=== PATIENT | female | born 1955 | race African-American/Black ===

== ENCOUNTER 2016-06-27 09:07 | Emergency (ER) | payer MEDICAID ==
[~2016-06-27] VITALS: Ht 160 cm; Wt 99.8 kg
[2016-06-27 09:18] VITALS: BP 146/83
[2016-06-27 09:44] LABS: APPEARANCE,URINE SLIGHTLY CLOUDY; KETONES,URINE NEGATIVE (NEGATIVE); LEUKOCYTE ESTERASE ,URINE 1+ (NEGATIVE); NITRITE,URINE NEGATIVE (NEGATIVE); PH,URINE 5 (4.5-8.0); PROTEIN,URINE NEGATIVE (NEGATIVE); UROBILINOGEN,URINE NORMAL MG/DL (0.0-1.0)
[2016-06-27 09:51] LABS: BACTERIA,URINE FEW /HPF; SQUAMOUS EPITHELIAL CELL,UR MODERATE /LPF (NONE/OCC)
[2016-06-27] MEDS ORDERED: ALBUTEROL SULF8.5 GM INH (10:05)
[2016-06-27] MEDS ORDERED: LEVAQUIN500 MG ORAL (10:05)
[2016-06-27 10:20] VITALS: BP 116/79
--- NOTE | 2016-06-27 10:23 | Emergency Room Report ---
History of Present Illness General Chief Complaint: Flu Like Symptoms Source: Patient Present Illness HPI Patient presents with 2 different complaints Mainly complaining of sore throat pain with swallowing patient has also had a mild cough and congestion She had taken some Mucinex for the congestion And feels that that might have caused some mild dehydration and now feeling bilateral lower flank discomfort and concern about a possible UTI Denies any abdominal pain she has had some increased frequency Denies any neck pain or photophobia she does however feel that both of her eyes are mildly itchy And mainly the right eye appears to be mildly red Denies any vomiting or diarrhea Allergies: Coded Allergies: IODINE (Verified Allergy, Unknown, 06/27/16) Uncoded Allergies: IV CONTRAST (Allergy, Unknown, 06/27/16) Patient History Past Medical History: see triage record Pertinent Family History: none Reviewed Nursing Documentation: PMH: Agreed, PSxH: Agreed Nursing Documentation-PMH Past Medical History: No History, Except For Hx Hypertension: Yes Review of Systems All Other Systems: negative except mentioned in HPI Physical Exam Vital Signs Date Time Temp Pulse Resp B/P Pulse Ox O2 Delivery O2 Flow Rate FiO2 06/27/16 09:18 98.2 60 14 146/83 98 Room Air Sp02 EP Interpretation: reviewed, normal General Appearance: well appearing, no apparent distress Head: normocephalic, atraumatic Eyes: bilateral eye EOMI, bilateral eye PERRL, bilateral eye other - Patient has a very fine mild erythematous hue to both eyes appears to be viral in nature , ENT: hearing grossly normal, TMs + canals normal, uvula midline, pharyngeal erythema - But no obvious pustules Neck: full range of motion, supple, no meningismus, no bony tend Respiratory: lungs clear, normal breath sounds, no rhonchi, no respiratory distress, no retraction, no accessory muscle use Cardiovascular #1: normal peripheral pulses, regular rate, rhythm, no edema, no gallop, no JVD, no murmur Gastrointestinal: normal bowel sounds, non tender, soft, no mass, no organomegaly, non-distended, no guarding, no hernia, no pulsatile mass, no rebound Musculoskeletal: normal inspection Neurologic: oriented x3, responsive, 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, motor strength/ tone normal, sensory intact Psychiatric: mood/affect normal Skin: normal color, no rash, warm/dry, palpation normal Lymphatic: normal inspection, no adenopathy Medical Decision Making Diagnostic Impression: Primary Impression: pharyngitis Additional Impression: flu like symptoms ER Course Patient has multiple differentials considered Urine sample does not show any obvious infectious pathology there were a few bacteria Patient's symptoms appear to have a component of viral syndrome However she does also have a finding of pharyngitis which is very erythematous and possibly bacterial patient was placed on oral antibiotics for that And requires close outpatient followup Labs Test 06/27/16 09:35 Urine Color Yellow Urine Appearance Slightly cloudy Urine pH 5 (4.5-8.0) Urine Specific [place] 1.025 (1.005-1.035) Urine Protein Negative (NEGATIVE) Urine Glucose (UA) Negative (NEGATIVE) Urine Ketones Negative (NEGATIVE) Urine Occult Blood 3+ (NEGATIVE) Urine Nitrite Negative (NEGATIVE) Urine Bilirubin Negative (NEGATIVE) Urine Urobilinogen Normal MG/DL (0.0-1.0) Urine Leukocyte Esterase 1+ (NEGATIVE) Urine RBC 2-4 /HPF (0 - 2) Urine WBC 2-4 /HPF (0 - 2) Urine Squamous Epithelial Cells Moderate /LPF (NONE/OCC) Urine Bacteria Few /HPF (NONE) Last Vital Signs Date Time Temp Pulse Resp B/P Pulse Ox O2 Delivery O2 Flow Rate FiO2 06/27/16 09:36 66 16 Room Air 06/27/16 09:18 98.2 146/83 98 Status: unchanged Disposition: HOME, SELF-CARE Condition: Stable Scripts Albuterol Sulfate* (ALBUTEROL SULFATE MDI*) 8.5 Gm Hfa.aer.ad 2 PUFF INH Q6H, #1 EA 0 Refills Prov: NASREEN ARGUETA D.O. 06/27/16 Levofloxacin* (LEVAQUIN*) 500 Mg Tablet 500 MG ORAL DAILY for 7 Days, TAB Prov: NASREEN ARGUETA D.O. 06/27/16 Referrals: NON PHYSICIAN (PCP) Patient Instructions: Pharyngitis, [id number], Viral Respiratory Infection Additional Instructions: Patient is provided with the discharge instructions notified to follow up with primary doctor in the next 2-3 days otherwise return to the er with any worsening symptoms. NASREEN ARGUETA D.O. Jun 27, 2016 10:23
[2016-07-31] MEDS ORDERED: PHENAZOPYRIDIN200 MG ORAL (16:14)
[2016-07-31] MEDS ORDERED: CLARITIN-D 241 EACH PO (16:14)
[2016-07-31] MEDS ORDERED: TYLENOL EXTRA500 MG ORAL (16:14)
== END 2016-06-27 10:22 | disposition home or self-care (01) ==
LOC: EMR 09:37
DX: J02.9 Acute pharyngitis, unspecified (principal); J11.1 Influenza due to unidentified influenza virus with other respiratory manifestations; I10 Essential (primary) hypertension; Z91.041 Radiographic dye allergy status
CPT/HCPCS: 81003; 99282

== ENCOUNTER 2016-07-10 11:27 | Emergency (ER) | payer MEDICAID ==
[~2016-07-10] VITALS: Ht 160 cm; Wt 113.4 kg
[~2016-07-10 11:27] MED LIST: ALBUTEROL SULF8.5 GM INH; LEVAQUIN500 MG ORAL
[2016-07-10 11:52] VITALS: BP 120/78
--- NOTE | 2016-07-10 12:36 | Emergency Room Report ---
History of Present Illness General Chief Complaint: Flu Like Symptoms Present Illness HPI 61-year-old female presents emergency department complaining of intermittent non-productive cough with nasal congestion, clear rhinorrhea and intermittent phlegm in the throat x10 days. Patient states that she was seen here approximately 10 days ago and was given antibiotics for upper respiratory symptoms and sore throat. Patient states that after about 5 days her symptoms resolved for one day and then returned again. Patient denies fevers or chills. She also reports continued bilateral flank discomfort and urinary urgency. Patient denies dysuria hematuria or abdominal pain. She denies neck stiffness or pain. Patient does report generalized body aches, fatigue, and increased sinus pressure the causes headaches. Denies CP, Palpitations, LOC, AMS, dizziness, Changes in Vision, Sensation, paresthesias, or a sudden severe headache. Allergies: Coded Allergies: IODINE (Verified Allergy, Unknown, 06/27/16) Uncoded Allergies: IV CONTRAST (Allergy, Unknown, 06/27/16) Patient History Past Medical History: see triage record Past Surgical History: none Pertinent Family History: none Now: No Immunizations: UTD Reviewed Nursing Documentation: PMH: Agreed, PSxH: Agreed Nursing Documentation-PMH Hx Hypertension: Yes Review of Systems All Other Systems: negative except mentioned in HPI Physical Exam Vital Signs Date Time Temp Pulse Resp B/P Pulse Ox O2 Delivery O2 Flow Rate FiO2 07/10/16 11:37 98.6 71 18 120/78 96 Room Air Sp02 EP Interpretation: reviewed, normal General Appearance: no apparent distress, alert, GCS 15, non-toxic Head: normocephalic, atraumatic Eyes: bilateral eye PERRL, bilateral eye normal inspection ENT: hearing grossly normal, normal pharynx, no angioedema, normal voice, TMs + canals normal, moist mucus membranes, nasal congestion - clear rhinorrhea bilaterally, other - nasal drainage noted in the posterior pharynx, no evidence of exudates, or petechiae Neck: full range of motion, supple/symm/no masses Respiratory: chest non-tender, lungs clear, normal breath sounds, speaking full sentences Cardiovascular #1: regular rate, rhythm, no edema Gastrointestinal: normal bowel sounds, non tender, soft, no guarding, no rebound Rectal: deferred Genitourinary: normal inspection, no CVA tenderness Musculoskeletal: back normal, gait/station normal, normal range of motion, non- tender, no calf tenderness Neurologic: alert, oriented x3, responsive, motor strength/tone normal, sensory intact, speech normal Psychiatric: judgement/insight normal, memory normal, mood/affect normal, no suicidal/homicidal ideation Skin: normal color, no rash, warm/dry, well hydrated Lymphatic: no adenopathy Medical Decision Making PA Attestation Dr. Yanez is my supervising Physician whom patient management has been discussed with. Diagnostic Impression: Primary Impression: Viral upper respiratory tract infection with cough ER Course Pt. presents to the ED c/o dry cough, nasal congestion, and rhinorrhea x 10 days. finished 5 day course of antibiotic previously. Pt also reports urinary frequency/urgency. Ddx considered but are not limited to URI, pneumonia, PE, strep pharyngitis, meningitis, pharyngitis Vital signs: Pt. is afebrile, the remaining VS are WNL H&PE are most consistent with URI- no meningeal signs, oropharynx is not involved, no evidence of bacterial infection at this time. possible UTI will do UA, no suspicion of stones as negative CVA tenderness, and pt. described pain as "discomfort" ORDERS: -UA: WNl, few rbc's indicating possible urinary irritation, no evidence of infection, no wbc's, few bacteria with few epithelial cells are most consistent with contamination. ED INTERVENTIONS: -1000mg Tylenol PO --PT. EDUCATION: Discussed antibiotic resistance with inappropriate prescribing of antibiotics for viral illnesses. Discussed signs and symptoms to indicate viral illness versus bacterial illness. D/w pt. that we will treat conservatively. -d/c pt. with Pyridium. DISCHARGE: At this time pt. is stable for d/c to home. Will provide printed patient care instructions, and any necessary prescriptions. Care plan and follow up instructions have been discussed with the patient prior to discharge. Labs Test 07/10/16 12:30 Urine Color Pale yellow Urine Appearance Slightly cloudy Urine pH 5 (4.5-8.0) Urine Specific [place] 1.020 (1.005-1.035) Urine Protein Negative (NEGATIVE) Urine Glucose (UA) Negative (NEGATIVE) Urine Ketones Negative (NEGATIVE) Urine Occult Blood 3+ (NEGATIVE) Urine Nitrite Negative (NEGATIVE) Urine Bilirubin Negative (NEGATIVE) Urine Urobilinogen Normal MG/DL (0.0-1.0) Urine Leukocyte Esterase Negative (NEGATIVE) Urine RBC 5-10 /HPF (0 - 2) Urine WBC 2-4 /HPF (0 - 2) Urine Squamous Epithelial Cells Few /LPF (NONE/OCC) Urine Bacteria Few /HPF (NONE) Last Vital Signs Date Time Temp Pulse Resp B/P Pulse Ox O2 Delivery O2 Flow Rate FiO2 07/10/16 11:52 71 18 Room Air 07/10/16 11:52 98.6 120/78 96 Disposition: HOME, SELF-CARE Condition: Stable Scripts Phenazopyridine Hcl* (PYRIDIUM*) 200 Mg Tablet 200 MG ORAL THREE TIMES A DAY, #14 TAB 0 Refills Prov: Keri HerrmannASumit 07/10/16 Acetaminophen* (TYLENOL EXTRA STRENGTH*) 500 Mg Tablet 500 MG ORAL Q6H, #30 TAB 0 Refills Prov: Keri Herrmann.ASumit 07/10/16 Loratadine/Pseudoephedrine (CLARITIN-D 24 HOUR TABLET) 1 Each Tab.er.24h 1 TAB PO DAILY for 14 Days, #14 TAB Prov: Keri Herrmann 07/10/16 Codeine/Promethazine Hcl* (PROMETHAZINE-CODEINE SYRUP*) 118 Ml Syrup 5 ML ORAL Q6H Y for For Cough, #236 ML 0 Refills Prov: Keri Herrmann 07/10/16 Patient Instructions: Upper Respiratory Infection, Adult Additional Instructions: Take medications as directed. Follow up with your Primary care Physician in 3-5 days Keri Herrmann Jul 10, 2016 12:36
[2016-07-10 12:41] LABS: APPEARANCE,URINE SLIGHTLY CLOUDY; KETONES,URINE NEGATIVE (NEGATIVE); LEUKOCYTE ESTERASE ,URINE NEGATIVE (NEGATIVE); NITRITE,URINE NEGATIVE (NEGATIVE); PH,URINE 5 (4.5-8.0); PROTEIN,URINE NEGATIVE (NEGATIVE); UROBILINOGEN,URINE NORMAL MG/DL (0.0-1.0)
[2016-07-10] MEDS ORDERED: Acetaminophen 500mg (ES) tab ORAL ONE (12:45)
[2016-07-10 12:56] LABS: BACTERIA,URINE FEW /HPF; SQUAMOUS EPITHELIAL CELL,UR FEW /LPF (NONE/OCC)
[2016-07-10] MEDS ORDERED: PROMETHAZINE-C118 M1 ORAL (13:02)
[2016-07-10] MEDS ORDERED: CLARITIN-D 241 EACH PO (13:02)
[2016-07-10] MEDS ORDERED: TYLENOL EXTRA500 MG ORAL (13:02)
[2016-07-10] MEDS ORDERED: PHENAZOPYRIDIN200 MG ORAL (13:03)
[2016-07-10 13:21] VITALS: BP 121/76
[2016-07-10 13:23] VITALS: BP 121/76
[2016-07-31] MEDS ORDERED: CLARITIN-D 241 EACH PO (16:14)
[2016-07-31] MEDS ORDERED: PHENAZOPYRIDIN200 MG ORAL (16:14)
[2016-07-31] MEDS ORDERED: TYLENOL EXTRA500 MG ORAL (16:14)
== END 2016-07-10 13:32 | disposition home or self-care (01) ==
LOC: EMR 13:00
DX: J06.9 Acute upper respiratory infection, unspecified (principal); Z91.041 Radiographic dye allergy status; I10 Essential (primary) hypertension
CPT/HCPCS: 81003; 99284

== ENCOUNTER 2016-08-18 13:00 | Emergency (ER) | payer MEDICAID ==
[~2016-08-18] VITALS: Ht 160 cm; Wt 90.7 kg
[~2016-08-18 13:00] MED LIST changes: +CLARITIN-D 241 EACH PO; +PHENAZOPYRIDIN200 MG ORAL; +PROMETHAZINE-C118 M1 ORAL; +TYLENOL EXTRA500 MG ORAL
--- NOTE | 2016-08-18 13:41 | Emergency Room Report ---
History of Present Illness General Chief Complaint: Pain Present Illness HPI The patient is a 61-year-old female with a history of cervical radiculopathy presenting for left neck pain which radiates down to the left shoulder and arm. The patient describes this pain as a 9/10 dull ache. Pain is worse with head movement. The patient states that she has been doing a lot of computer work over the past few day with outstretched arms and thinks this may have caused the pain. The patient usually takes gabapentin, Voltaren gel, and Flexeril but states that she is away from home and does not have access to these medications for the next week. The patient denies any other symptoms including nausea, vomiting, fever, chills, headache, dizziness, blurred vision, numbness or tingling Allergies: Coded Allergies: IODINE (Verified Allergy, Unknown, 06/27/16) Uncoded Allergies: IV CONTRAST (Allergy, Unknown, 06/27/16) Patient History Past Medical History: see triage record Pertinent Family History: none Reviewed Nursing Documentation: PMH: Agreed, PSxH: Agreed Nursing Documentation-PMH Hx Hypertension: Yes Review of Systems All Other Systems: negative except mentioned in HPI Physical Exam Vital Signs Date Time Temp Pulse Resp B/P Pulse Ox O2 Delivery O2 Flow Rate FiO2 08/18/16 13:29 97.7 67 20 119/75 94 Room Air Sp02 EP Interpretation: reviewed, normal General Appearance: no apparent distress, alert, GCS 15, non-toxic Head: normocephalic, atraumatic Eyes: bilateral eye PERRL, bilateral eye normal inspection ENT: hearing grossly normal, normal pharynx, no angioedema, normal voice Neck: full range of motion, supple/symm/no masses, tender lateral - L Respiratory: chest non-tender, lungs clear, normal breath sounds, no wheezing, speaking full sentences Cardiovascular #1: regular rate, rhythm, no edema Musculoskeletal: back normal, gait/station normal, normal range of motion, tender - TTP over L trapezius Neurologic: alert, oriented x3, responsive, motor strength/tone normal, sensory intact, speech normal Psychiatric: judgement/insight normal, memory normal, mood/affect normal, no suicidal/homicidal ideation Reflexes: 3+ bicep (R), 3+ bicep (L), 3+ tricep (R), 3+ tricep (L), 3+ knee (R) , 3+ knee (L) Skin: normal color, no rash, warm/dry, well hydrated Lymphatic: no adenopathy Medical Decision Making PA Attestation Dr. Allison is my supervising physician. Patient management was discussed with my supervising physician Diagnostic Impression: Primary Impression: Cervical radiculopathy ER Course The patient is a 61-year-old female with a history of cervical radiculopathy presenting for left neck pain which radiates down to the left shoulder Ddx considered include but not limited to cervical radiculopathy, sprain/strain , fracture, contusion PE: vitals WNL. NAD. There is tenderness to palpation over left cervical paraspinous muscles and left trapezius. Full active range of motion.SILT. No obvioous deformity. The patient is given Toradol and Flexeril with good relief of pain The patient will be discharged home with a refill of medications and will FU with PMD. ER precautions given Last Vital Signs Date Time Temp Pulse Resp B/P Pulse Ox O2 Delivery O2 Flow Rate FiO2 08/18/16 13:29 97.7 67 20 119/75 94 Room Air Status: improved Disposition: HOME, SELF-CARE Condition: Improved Scripts Gabapentin* (GABAPENTIN*) 300 Mg Capsule 300 MG ORAL BID, #30 CAP 0 Refills Prov: RITCHIE KENYON P.A. 08/18/16 Cyclobenzaprine Hcl* (FLEXERIL*) 10 Mg Tablet 10 MG ORAL Q12HR, #10 TAB Prov: RITCHIE KENYON P.A. 08/18/16 Diclofenac Sodium (Diclofenac Sodium) 100 Gm Gel..gram. 1 APPLIC TP Q12HR, #100 GM Prov: REBAANALONZOY P.A. 08/18/16 Referrals: NOT CHOSEN IPA/,REFERRING (PCP) RITCHIE KENYONASumit Aug 18, 2016 13:41
[2016-08-18] MEDS ORDERED: GABAPENTIN300 MG ORAL (13:54)
[2016-08-18] MEDS ORDERED: DICLOFENAC SOD100 GM TP (13:54)
[2016-08-18] MEDS ORDERED: CYCLOBENZAPRINE10 MG ORAL (13:54)
[2016-08-18] MEDS ORDERED: Ketorolac 30mg Inj IM ONE (14:00)
[2016-08-18] MEDS ORDERED: Cyclobenzaprine 10mg Tab ORAL ONE (14:00)
[2016-08-18 14:20] VITALS: BP 145/83
== END 2016-08-18 14:20 | disposition home or self-care (01) ==
LOC: EMR 13:35
DX: M54.12 Radiculopathy, cervical region (principal); Z91.041 Radiographic dye allergy status; I10 Essential (primary) hypertension
CPT/HCPCS: 96372; 99284; J1885

== ENCOUNTER 2017-04-14 13:42 | Emergency (ER) | payer MEDICAID ==
[~2017-04-14] VITALS: Ht 167.6 cm; Wt 103.0 kg
[~2017-04-14 13:42] MED LIST changes: +CYCLOBENZAPRINE10 MG ORAL; +DICLOFENAC SOD100 GM TP; +GABAPENTIN300 MG ORAL
[2017-04-14 13:48] VITALS: BP 130/80
[2017-04-14] MEDS ORDERED: PROMETHAZI6.25 MG/1 ORAL (14:12)
[2017-04-14] MEDS ORDERED: OMEPRAZOLE20 M2 ORAL (14:12)
[2017-04-14] MEDS ORDERED: IBUPROFEN600 MG ORAL (14:12)
[2017-04-14] MEDS ORDERED: Promethazine Plain 6.25mg/5ml ORAL ONE (14:15)
[2017-04-14] MEDS ORDERED: TYLENOL EXTRA500 MG ORAL (14:37)
[2017-04-14 14:40] VITALS: BP 130/80
--- NOTE | 2017-04-14 14:47 | Emergency Room Report ---
History of Present Illness General Chief Complaint: Sore Throat Source: Patient Present Illness [facility] The patient is a 61-year-old female presenting for sore throat, hoarse voice, dry cough, subjective fever for the past week. She denies any known sick contacts recent travel. Pain is a 7/10 dull ache to the throat and does not radiate. Worse with talking. She denies any other symptoms including N, V, SOB , CP, hemoptyis, dysphagia Allergies: Coded Allergies: IODINE (Verified Allergy, Unknown, 06/27/16) Uncoded Allergies: IV CONTRAST (Allergy, Unknown, 06/27/16) Patient History Past Medical History: see triage record Pertinent Family History: none Last Menstrual Period: Post Reviewed Nursing Documentation: PMH: Agreed, PSxH: Agreed Nursing Documentation-PMH Hx Hypertension: Yes Review of Systems All Other Systems: negative except mentioned in HPI Physical Exam Vital Signs Date Time Temp Pulse Resp B/P (MAP) Pulse Ox O2 Delivery O2 Flow Rate FiO2 04/14/17 13:48 98.2 76 16 130/80 96 Room Air Sp02 EP Interpretation: reviewed, normal General Appearance: no apparent distress, alert, GCS 15, non-toxic Head: normocephalic, atraumatic Eyes: bilateral eye normal inspection, bilateral eye PERRL ENT: hearing grossly normal, normal pharynx, no angioedema, normal voice, uvula midline, nasal congestion Neck: full range of motion, supple, supple/symm/no masses Respiratory: chest non-tender, lungs clear, normal breath sounds, no wheezing, speaking full sentences Musculoskeletal: back normal, gait/station normal, normal range of motion, non- tender Neurologic: alert, oriented x3, responsive, motor strength/tone normal, sensory intact, speech normal Psychiatric: judgement/insight normal, memory normal, mood/affect normal, no suicidal/homicidal ideation Skin: normal color, no rash, warm/dry, well hydrated Lymphatic: no adenopathy Medical Decision Making PA Attestation Dr. Persaud is my supervising physician. Patient management was discussed with my supervising physician Diagnostic Impression: Primary Impression: Laryngitis, acute ER Course The patient is a 61-year-old female presenting for sore throat, hoarse voice, dry cough, subjective fever Differential diagnosis include but not limited to laryngitis, pharyngitis, sinusitis, AOM, bronchitis, PNA Physical exam: Vitals within normal limits. Afebrile. No apparent distress HEENT exam: There is no tonsillar edema, erythema, or exudate. Uvula midline. Moist mucous membranes. There is no cervical lymphadenopathy. Lungs are clear to auscultation bilaterally Skin is warm and dry. No rash The patient will be discharged home with a prescription for PPI, tylenol, and cough medication and is given ER precautions. Patient will followup with primary care Last Vital Signs Date Time Temp Pulse Resp B/P (MAP) Pulse Ox O2 Delivery O2 Flow Rate FiO2 04/14/17 13:48 98.2 76 16 130/80 96 Room Air Status: improved Disposition: HOME, SELF-CARE Condition: Improved Scripts Acetaminophen* (TYLENOL EXTRA STRENGTH*) 500 Mg Tablet 500 MG ORAL Q8H Y for Prn Headache/Temp > 101, #30 TAB 0 Refills Prov: RITCHIE KENYON 04/14/17 Promethazine Hcl (PROMETHAZINE HCL*) 6.25 Mg/5 Ml Syrup 5 ML ORAL Q8H, #120 ML 0 Refills Prov: RITCHIE KENYON 04/14/17 Omeprazole (OMEPRAZOLE) 20 Mg Capsule. 20 MG ORAL DAILY, #30 CAP Prov: RITCHIE KENYON. 04/14/17 Referrals: NON PHYSICIAN (PCP) Patient Instructions: Laryngitis Additional Instructions: I discussed my findings with the patient. All questions and concerns have been answered. Treatment and medication compliance have been addressed. I advised the patient that they need to follow up with PMD in 3-5 days. Return to ED if pain remains or worsens, cough worsens or remains, you notice blood in your sputum, you notice wheezing, you experience a fever, or if needed for any reason. Patient verbalized understanding of discharge instructions. RITCHIE KENYON Apr 14, 2017 14:47
== END 2017-04-14 14:40 | disposition home or self-care (01) ==
LOC: EMR 14:15
DX: J04.0 Acute laryngitis (principal); I10 Essential (primary) hypertension; Z91.041 Radiographic dye allergy status
CPT/HCPCS: 99284

== ENCOUNTER 2018-12-04 12:11 | Emergency (ER) | payer MEDICAID ==
[~2018-12-04] VITALS: Ht 160 cm; Wt 99.8 kg
[~2018-12-04 12:11] MED LIST changes: +IBUPROFEN600 MG ORAL; +OMEPRAZOLE20 M2 ORAL; +PROMETHAZI6.25 MG/1 ORAL
[2018-12-04 12:37] VITALS: BP 134/84
--- NOTE | 2018-12-04 12:40 | NUR ---
ED Nurse Note: Patient walked in to ER from home due to diarrhea for 4 days. patient aao x4 and ambulatory. skin clean and intact. calm and cooperative. per pt, the color of diarrhea has been changed to reddish this morning. pt denied taking blood thinner. pt is in gown and on sales program manager.
[2018-12-04] MEDS ORDERED: Dicyclomine HCl 10mg/5ml oral soln ORAL ONE (12:45)
[2018-12-04] MEDS ORDERED: Lidocaine 2% Visc 15ml soln ORAL ONE (12:45)
[2018-12-04] MEDS ORDERED: Mylanta II UD 30ml ORAL ONE (12:45)
[2018-12-04 13:16] LABS: BASOPHILS % (AUTO) 1.1 % (0.0-2.0); HEMATOCRIT 43.6 % (37.0-47.0); LYMPHOCYTES % (AUTO) 29.5 % (20.0-45.0); MEAN CORPUSCULAR VOLUME 86 FL (80-99); MONOCYTES % (AUTO) 12.9 % (1.0-10.0); NEUTROPHILS % (AUTO) 54.6 % (45.0-75.0); PLATELET COUNT 328 K/UL (150-450); RED CELL DISTRIBUTION WIDTH 13.3 % (11.6-14.8); WHITE BLOOD COUNT 4.5 K/UL (4.8-10.8)
[2018-12-04 13:29] LABS: ANION GAP 9 mmol/L (5-15); BLOOD UREA NITROGEN 15 mg/dL (7-18); CALCIUM 9.6 MG/DL (8.5-10.1); CARBON DIOXIDE 28 MMOL/L (21-32); CHLORIDE 107 MMOL/L (98-107); CREATININE 1.1 MG/DL (0.55-1.30); SODIUM 144 MMOL/L (136-145)
[2018-12-04 13:34] LABS: ALANINE AMINOTRANSFERASE 25 U/L (12-78); ALBUMIN 3.8 G/DL (3.4-5.0); ALBUMIN/GLOBULIN RATIO 0.9 (1.0-2.7); ALKALINE PHOSPHATASE 45 U/L (46-116); ASPARTATE AMINO TRANSFERASE 16 U/L (15-37); BILIRUBIN,TOTAL 0.7 MG/DL (0.2-1.0)
[2018-12-04] MEDS ORDERED: RANITIDINE HCL150 MG ORAL (14:04)
[2018-12-04] MEDS ORDERED: DICYCLOMINE HCL10 MG ORAL (14:04)
[2018-12-04] MEDS ORDERED: METRONIDAZOLE500 MG ORAL (14:04)
[2018-12-04] MEDS ORDERED: CIPROFLOXACIN500 M2 ORAL (14:04)
[2018-12-04 14:18] VITALS: BP 128/75
--- NOTE | 2018-12-04 14:19 | NUR ---
ER DISCHARGE NOTE: Patient is cleared to be discharged per ERMD, pt is aox4, on room air, with stable vital signs. pt was given dc and prescription instructions with lab results as requested, pt was able to verbalize understanding, pt id band and iv site removed without complications. pt is able to ambulate with steady gait. pt took all belongings.
--- NOTE | 2018-12-05 08:45 | Emergency Room Report ---
History of Present Illness General Chief Complaint: Abdominal Pain Source: Patient Present Illness HPI 63-year-old female presents ED for evaluation. Walked in complaining of abdominal pain with diarrhea for the last 5 days. States it is been very watery. Notes cramping abdominal pain. 5 out of 10, nonradiating. Denies nausea or vomiting. Denies fevers or chills. Denies sick contacts or recent travel. Denies recent antibiotic use. No other aggravating relieving factors. Denies any other associated symptoms Allergies: Coded Allergies: IODINE (Verified Allergy, Unknown, 06/27/16) Uncoded Allergies: IV CONTRAST (Allergy, Unknown, 06/27/16) Patient History Past Medical History: HTN Past Surgical History: none Pertinent Family History: none Social History: Denies: smoking, alcohol use, drug use Now: No Immunizations: UTD Reviewed Nursing Documentation: PMH: Agreed; PSxH: Agreed Nursing Documentation-PMH Hx Hypertension: Yes Review of Systems All Other Systems: negative except mentioned in HPI Physical Exam Vital Signs Date Time Temp Pulse Resp B/P (MAP) Pulse Ox O2 Delivery O2 Flow Rate FiO2 12/04/18 12:22 98.1 69 15 138/83 (101) 95 Room Air Sp02 EP Interpretation: reviewed, normal General Appearance: no apparent distress, alert, GCS 15, non-toxic, obese Head: normocephalic, atraumatic Eyes: bilateral eye normal inspection, bilateral eye PERRL ENT: hearing grossly normal, normal pharynx, no angioedema, normal voice Neck: full range of motion, supple/symm/no masses Respiratory: chest non-tender, lungs clear, normal breath sounds, speaking full sentences Cardiovascular #1: regular rate, rhythm, no edema Cardiovascular #2: 2+ carotid (R), 2+ carotid (L), 2+ radial (R), 2+ radial (L) , 2+ dorsalis pedis (R), 2+ dorsalis pedis (L) Gastrointestinal: normal bowel sounds, non tender, soft, non-distended, no guarding, no rebound Rectal: deferred Genitourinary: normal inspection, no CVA tenderness Musculoskeletal: back normal, gait/station normal, normal range of motion, non- tender Neurologic: alert, oriented x3, responsive, motor strength/tone normal, sensory intact, speech normal Psychiatric: judgement/insight normal, memory normal, mood/affect normal, no suicidal/homicidal ideation Reflexes: 3+ bicep (R), 3+ bicep (L), 3+ tricep (R), 3+ tricep (L), 3+ knee (R) , 3+ knee (L) Skin: normal color, no rash, warm/dry, well hydrated Lymphatic: no adenopathy Medical Decision Making Diagnostic Impression: Primary Impression: Colitis ER Course Hospital Course 63-year-old F presents to ED with cramping abdominal pain with diarrhea differential diagnosis: gastritis, SBO, cholecystits, gastroenteritis Clinical course Patient placed on stretcher. On gambling monitor. After initial history and physical I ordered labs, IV fluids, GI cocktail, pepcid Labs - no leukocytosis, electrolytes ok, LFTs normal discussed findings with patient. Likely gastroenteritis. However patient is concerned that symptoms have not resolved after 5 days and I explained that this is likely viral and course is limited. Usually 10 to 12 days. Provide prescription for antibiotics. Patient should only take if symptoms do not resolve after 10 days. States she does not have a PMD. I will provide referrals. Safe for discharge with close outpatient follow-up I feel this is a highly complex case requiring extensive working including EKG/ Rhythm strip, Xray/CT/US, Blood/urine lab work, repeat exams while in ED, and administration of strong opiates/narcotics for pain control, admission to hospital or close patient follow up. Diagnosis - colitis Stable and discharged to home with prescriptions for Zantac, cipro, flagyl, bentyl. Followup with PMD. Return to ED if symptoms recur or worsen Labs Test 12/04/18 13:00 White Blood Count 4.5 K/UL (4.8-10.8) Red Blood Count 5.10 M/UL (4.20-5.40) Hemoglobin 14.0 G/DL (12.0-16.0) Hematocrit 43.6 % (37.0-47.0) Mean Corpuscular Volume 86 FL (80-99) Mean Corpuscular Hemoglobin 27.4 PG (27.0-31.0) Mean Corpuscular Hemoglobin Concent 32.0 G/DL (32.0-36.0) Red Cell Distribution Width 13.3 % (11.6-14.8) Platelet Count 328 K/UL (150-450) Mean Platelet Volume 7.3 FL (6.5-10.1) Neutrophils (%) (Auto) 54.6 % (45.0-75.0) Lymphocytes (%) (Auto) 29.5 % (20.0-45.0) Monocytes (%) (Auto) 12.9 % (1.0-10.0) Eosinophils (%) (Auto) 2.0 % (0.0-3.0) Basophils (%) (Auto) 1.1 % (0.0-2.0) Sodium Level 144 MMOL/L (136-145) Potassium Level 4.0 MMOL/L (3.5-5.1) Chloride Level 107 MMOL/L (98-107) Carbon Dioxide Level 28 MMOL/L (21-32) Anion Gap 9 mmol/L (5-15) Blood Urea Nitrogen 15 mg/dL (7-18) Creatinine 1.1 MG/DL (0.55-1.30) Estimat Glomerular Filtration Rate > 60 mL/min (>60) Glucose Level 92 MG/DL (74-106) Calcium Level 9.6 MG/DL (8.5-10.1) Total Bilirubin 0.7 MG/DL (0.2-1.0) Aspartate Amino Transf (AST/SGOT) 16 U/L (15-37) Alanine Aminotransferase (ALT/SGPT) 25 U/L (12-78) Alkaline Phosphatase 45 U/L (46-116) Total Protein 8.0 G/DL (6.4-8.2) Albumin 3.8 G/DL (3.4-5.0) Globulin 4.2 g/dL Albumin/Globulin Ratio 0.9 (1.0-2.7) Lipase 84 U/L (73-393) Last Vital Signs Date Time Temp Pulse Resp B/P (MAP) Pulse Ox O2 Delivery O2 Flow Rate FiO2 12/04/18 14:18 98.1 79 15 128/75 100 Room Air Status: improved Disposition: HOME, SELF-CARE Condition: Stable Scripts Dicyclomine Hcl* (DICYCLOMINE HCL*) 10 Mg Capsule 10 MG ORAL TID, #10 CAP Prov: Trung Allison MD 12/04/18 Ranitidine Hcl* (ZANTAC*) 150 Mg Tablet 150 MG ORAL TWICE A DAY, #30 TAB Prov: Trung Allison MD 12/04/18 Metronidazole* (FLAGYL*) 500 Mg Tablet 500 MG ORAL THREE TIMES A DAY, #21 TAB Prov: Trung Allison MD 12/04/18 Ciprofloxacin Hcl* (CIPROFLOXACIN HCL*) 500 Mg Tablet 500 MG ORAL Q12H, #14 TAB 0 Refills Prov: Trung Allison MD 12/04/18 Referrals: [facility] Patient Instructions: Colitis Additional Instructions: start the antibiotics if your symptoms do not resolve after 10 days Trung Allison MD Dec 05, 2018 08:45
== END 2018-12-04 14:20 | disposition home or self-care (01) ==
LOC: EMR 12:31
DX: K52.9 Noninfective gastroenteritis and colitis, unspecified (principal); Z91.041 Radiographic dye allergy status; I10 Essential (primary) hypertension; E66.9 Obesity, unspecified; Z68.39 Body mass index [BMI] 39.0-39.9, adult
CPT/HCPCS: 36415; 80053; 83690; 85025; 96361; 96374; 99284; S0028

== ENCOUNTER 2018-12-30 11:32 | Emergency (ER) | payer MEDICAID ==
[~2018-12-30] VITALS: Ht 160 cm; Wt 100.2 kg
[~2018-12-30 11:32] MED LIST changes: +CIPROFLOXACIN500 M2 ORAL; +DICYCLOMINE HCL10 MG ORAL; +METRONIDAZOLE500 MG ORAL; +RANITIDINE HCL150 MG ORAL
--- NOTE | 2018-12-30 11:40 | NUR ---
ED Nurse Note: pt to brp
[2018-12-30 12:17] VITALS: BP 145/84
--- NOTE | 2018-12-30 12:19 | NUR ---
ED Nurse Note:pt. came from home with s/s of UTI, pt. is A/Ox4 ambulatory, VSS, blood and urine sent to labs, given IV fluids
[2018-12-30 12:30] LABS: APPEARANCE,URINE SLIGHTLY CLOUDY; BILIRUBIN, URINE NEGATIVE (NEGATIVE); COLOR,URINE YELLOW; GLUCOSE, URINE (UA) NEGATIVE (NEGATIVE); KETONES,URINE NEGATIVE (NEGATIVE); LEUKOCYTE ESTERASE ,URINE 3+ (NEGATIVE); NITRITE,URINE NEGATIVE (NEGATIVE); PH,URINE 5 (4.5-8.0); PROTEIN,URINE 1+ (NEGATIVE); UROBILINOGEN,URINE NORMAL MG/DL (0.0-1.0)
[2018-12-30 12:34] LABS: BASOPHILS % (AUTO) 2.2 % (0.0-2.0); EOSINOPHILS % (AUTO) 2.2 % (0.0-3.0); HEMATOCRIT 41.8 % (37.0-47.0); HEMOGLOBIN 13.1 G/DL (12.0-16.0); LYMPHOCYTES % (AUTO) 42.4 % (20.0-45.0); MEAN CORPUSCULAR VOLUME 86 FL (80-99); MONOCYTES % (AUTO) 10.8 % (1.0-10.0); NEUTROPHILS % (AUTO) 42.5 % (45.0-75.0); PLATELET COUNT 338 K/UL (150-450); RED BLOOD COUNT 4.83 M/UL (4.20-5.40); RED CELL DISTRIBUTION WIDTH 13.2 % (11.6-14.8); WHITE BLOOD COUNT 4.6 K/UL (4.8-10.8)
[2018-12-30 12:46] LABS: ANION GAP 8 mmol/L (5-15); BLOOD UREA NITROGEN 12 mg/dL (7-18); CALCIUM 9.7 MG/DL (8.5-10.1); CARBON DIOXIDE 28 MMOL/L (21-32); CHLORIDE 110 MMOL/L (98-107); CREATININE 0.9 MG/DL (0.55-1.30); POTASSIUM 3.8 MMOL/L (3.5-5.1); SODIUM 146 MMOL/L (136-145)
[2018-12-30 12:51] LABS: ALANINE AMINOTRANSFERASE 65 U/L (12-78); ALBUMIN 3.5 G/DL (3.4-5.0); ALBUMIN/GLOBULIN RATIO 0.9 (1.0-2.7); ALKALINE PHOSPHATASE 56 U/L (46-116); ASPARTATE AMINO TRANSFERASE 32 U/L (15-37); BILIRUBIN,TOTAL 0.4 MG/DL (0.2-1.0)
[2018-12-30] MEDS ORDERED: CEPHALEXIN500 MG ORAL (13:11)
[2018-12-30 13:29] VITALS: BP 145/84
--- NOTE | 2018-12-30 13:39 | NUR ---
ER DISCHARGE NOTE: Patient is cleared to be discharged per ERMD Dr Allison, pt is aox4, on room air, with stable vital signs. pt was given dc and prescription instructions, pt was able to verbalize understanding, pt id band and iv site removed without complications. pt is able to ambulate with steady gait. pt took all belongings.
--- NOTE | 2018-12-30 14:31 | Emergency Room Report ---
History of Present Illness General Chief Complaint: Female Urogenital Problems Source: Patient Present Illness HPI 63-year-old female presents ED for evaluation. Patient complaining of feeling weak and dehydrated. States she may have a UTI. Burning urination for the last few days. Was seen here in end of November and treated for colitis with antibiotics. States the diarrhea is now resolving. Denies fevers or chills. Denies nausea or vomiting. No other aggravating relieving factors. Denies any other associated symptoms Allergies: Coded Allergies: IODINE (Verified Allergy, Unknown, 06/27/16) Uncoded Allergies: IV CONTRAST (Allergy, Unknown, 06/27/16) Patient History Past Medical History: HTN Past Surgical History: none Pertinent Family History: none Social History: Denies: smoking, alcohol use, drug use Last Menstrual Period: na Now: No Immunizations: UTD Reviewed Nursing Documentation: PMH: Agreed; PSxH: Agreed Nursing Documentation-PMH Past Medical History: No History, Except For Hx Hypertension: Yes Review of Systems All Other Systems: negative except mentioned in HPI Physical Exam Vital Signs Date Time Temp Pulse Resp B/P (MAP) Pulse Ox O2 Delivery O2 Flow Rate FiO2 12/30/18 11:43 98.1 76 18 145/84 (104) 98 Room Air Sp02 EP Interpretation: reviewed, normal General Appearance: no apparent distress, alert, GCS 15, non-toxic Head: normocephalic, atraumatic Eyes: bilateral eye normal inspection, bilateral eye PERRL ENT: hearing grossly normal, normal pharynx, no angioedema, normal voice Neck: full range of motion, supple/symm/no masses Respiratory: chest non-tender, lungs clear, normal breath sounds, speaking full sentences Cardiovascular #1: regular rate, rhythm, no edema Cardiovascular #2: 2+ carotid (R), 2+ carotid (L), 2+ radial (R), 2+ radial (L) , 2+ dorsalis pedis (R), 2+ dorsalis pedis (L) Gastrointestinal: normal bowel sounds, non tender, soft, non-distended, no guarding, no rebound Rectal: deferred Genitourinary: normal inspection, no CVA tenderness Musculoskeletal: back normal, gait/station normal, normal range of motion, non- tender Neurologic: alert, oriented x3, responsive, motor strength/tone normal, sensory intact, speech normal Psychiatric: judgement/insight normal, memory normal, mood/affect normal, no suicidal/homicidal ideation Reflexes: 3+ bicep (R), 3+ bicep (L), 3+ tricep (R), 3+ tricep (L), 3+ knee (R) , 3+ knee (L) Lymphatic: no adenopathy Medical Decision Making Diagnostic Impression: Primary Impression: Leukopenia Qualified Codes: D72.819 - Decreased white blood cell count, unspecified Additional Impressions: Gastroenteritis UTI (urinary tract infection) Qualified Codes: N39.0 - Urinary tract infection, site not specified ER Course Hospital Course 63 yo F presents with diarrhea, dysuria. recently treated for colitis differential diagnosis: gastritis, SBO, cholecystits, gastroenteritis Clinical course Patient placed on stretcher. On cardiac nurse practitioner. After initial history and physical I ordered labs, IV fluids Labs - leukopenia noted. electrolytes ok. UA + bacteria discussed findings with patient. Patient got copies of her labs from prior visit and noted that her WBC was low. Also leukopenic today. Explained that this could be sign of infection however would benefit from outpatient work-up. Will discharge with antibiotics. States that she does not have a PMD. Will provide referrals I feel this is a highly complex case requiring extensive working including EKG/ Rhythm strip, Xray/CT/US, Blood/urine lab work, repeat exams while in ED, and administration of strong opiates/narcotics for pain control, admission to hospital or close patient follow up. Diagnosis - leukopenia, UTI, gastroenteritis Stable and discharged to home with prescriptions for keflex. Followup with PMD. Return to ED if symptoms recur or worsen Labs Test 12/30/18 12:10 White Blood Count 4.6 K/UL (4.8-10.8) Red Blood Count 4.83 M/UL (4.20-5.40) Hemoglobin 13.1 G/DL (12.0-16.0) Hematocrit 41.8 % (37.0-47.0) Mean Corpuscular Volume 86 FL (80-99) Mean Corpuscular Hemoglobin 27.1 PG (27.0-31.0) Mean Corpuscular Hemoglobin Concent 31.3 G/DL (32.0-36.0) Red Cell Distribution Width 13.2 % (11.6-14.8) Platelet Count 338 K/UL (150-450) Mean Platelet Volume 6.4 FL (6.5-10.1) Neutrophils (%) (Auto) 42.5 % (45.0-75.0) Lymphocytes (%) (Auto) 42.4 % (20.0-45.0) Monocytes (%) (Auto) 10.8 % (1.0-10.0) Eosinophils (%) (Auto) 2.2 % (0.0-3.0) Basophils (%) (Auto) 2.2 % (0.0-2.0) Urine Color Yellow Urine Appearance Slightly cloudy Urine pH 5 (4.5-8.0) Urine Specific [place] 1.025 (1.005-1.035) Urine Protein 1+ (NEGATIVE) Urine Glucose (UA) Negative (NEGATIVE) Urine Ketones Negative (NEGATIVE) Urine Blood 4+ (NEGATIVE) Urine Nitrite Negative (NEGATIVE) Urine Bilirubin Negative (NEGATIVE) Urine Urobilinogen Normal MG/DL (0.0-1.0) Urine Leukocyte Esterase 3+ (NEGATIVE) Urine RBC 5-10 /HPF (0 - 2) Urine WBC 40-60 /HPF (0 - 2) Urine Squamous Epithelial Cells Many /LPF (NONE/OCC) Urine Bacteria Few /HPF (NONE) Sodium Level 146 MMOL/L (136-145) Potassium Level 3.8 MMOL/L (3.5-5.1) Chloride Level 110 MMOL/L (98-107) Carbon Dioxide Level 28 MMOL/L (21-32) Anion Gap 8 mmol/L (5-15) Blood Urea Nitrogen 12 mg/dL (7-18) Creatinine 0.9 MG/DL (0.55-1.30) Estimat Glomerular Filtration Rate > 60 mL/min (>60) Glucose Level 91 MG/DL (74-106) Calcium Level 9.7 MG/DL (8.5-10.1) Total Bilirubin 0.4 MG/DL (0.2-1.0) Aspartate Amino Transf (AST/SGOT) 32 U/L (15-37) Alanine Aminotransferase (ALT/SGPT) 65 U/L (12-78) Alkaline Phosphatase 56 U/L (46-116) Total Protein 7.3 G/DL (6.4-8.2) Albumin 3.5 G/DL (3.4-5.0) Globulin 3.8 g/dL Albumin/Globulin Ratio 0.9 (1.0-2.7) Lipase 103 U/L (73-393) Last Vital Signs Date Time Temp Pulse Resp B/P (MAP) Pulse Ox O2 Delivery O2 Flow Rate FiO2 12/30/18 13:29 98.1 61 18 145/84 98 Room Air Status: improved Disposition: HOME, SELF-CARE Condition: Stable Scripts Cephalexin* (KEFLEX*) 500 Mg Capsule 500 MG ORAL EVERY 6 HOURS for 7 Days, CAP Prov: Trung Allison MD 12/30/18 Referrals: Remington Reed MD NOT CHOSEN IPA/,REFERRING (PCP) [facility] Patient Instructions: Urinary Tract Infection Trung Allison MD Dec 30, 2018 14:31
== END 2018-12-30 13:39 | disposition home or self-care (01) ==
LOC: EMR 12:26
DX: D72.819 Decreased white blood cell count, unspecified (principal); K52.9 Noninfective gastroenteritis and colitis, unspecified; N39.0 Urinary tract infection, site not specified; I10 Essential (primary) hypertension; Z91.041 Radiographic dye allergy status
CPT/HCPCS: 36415; 80053; 81003; 83690; 85025; 87086; 96360; 99284

== ENCOUNTER 2019-02-03 16:35 | Emergency (ER) | payer MEDICAID ==
[~2019-02-03] VITALS: Ht 160 cm; Wt 99.8 kg
[~2019-02-03 16:35] MED LIST changes: +CEPHALEXIN500 MG ORAL
--- NOTE | 2019-02-03 16:43 | NUR ---
ED Nurse Note: pt wants to be triage after phone call.
[2019-02-03 16:45] VITALS: BP 108/69
--- NOTE | 2019-02-03 16:45 | NUR ---
ED Nurse Note: PT WALKED IN TO ER TODAY FROM HOME. AOX4. PT C/O PERSISTENT, NONPRODUCTIVE COUGH X 2 WEEKS. PT ALSO C/O CHILLS. PT DENIES FEVER, NAUSEA, OR VOMITING. PT DENIES ANY PAIN AT REST. AT BEDSIDE, RR24, O2SAT 98% ON RA. NO SIGNS OF RESPIRATORY DISTRESS, RETRACTIONS, OR ACCESSORY MUSCLE USE NOTED. WHEEZING AUSCULTATED TO LEFT LOWER LOBE.
[2019-02-03] MEDS ORDERED: SYNTHROID25 MCG ORAL (16:49)
--- NOTE | 2019-02-03 17:02 | Emergency Room Report ---
History of Present Illness General Chief Complaint: Upper Respiratory Illness Source: Patient, Medical Record Present Illness HPI 63-year-old female history of hypertension, hyperlipidemia, presents with cough , congestion x2 weeks, sweats, chest pain after coughing, characterization of shortness of breath, no aggravating relieving factors, severity is moderate, symptoms are constant, patient presents for evaluation of her cough. Allergies: Coded Allergies: IODINE (Verified Allergy, Unknown, 06/27/16) Uncoded Allergies: IV CONTRAST (Allergy, Unknown, 06/27/16) Patient History Past Medical History: see triage record Reviewed Nursing Documentation: PMH: Agreed; PSxH: Agreed Nursing Documentation-PMH Past Medical History: No History, Except For Hx Hypertension: Yes Review of Systems All Other Systems: negative except mentioned in HPI Physical Exam Vital Signs Date Time Temp Pulse Resp B/P (MAP) Pulse Ox O2 Delivery O2 Flow Rate FiO2 02/03/19 16:46 98.2 91 18 135/83 (100) 98 Room Air Sp02 EP Interpretation: reviewed, normal General Appearance: well appearing, no apparent distress, alert Head: normocephalic, atraumatic Eyes: bilateral eye PERRL, bilateral eye EOMI ENT: uvula midline, moist mucus membranes Neck: supple, thyroid normal, supple/symm/no masses Respiratory: lungs clear, no respiratory distress, no retraction, no accessory muscle use Cardiovascular #1: normal peripheral pulses, regular rate, rhythm, no edema, no gallop, no murmur Gastrointestinal: non tender, soft, no guarding, no rebound Musculoskeletal: normal inspection Neurologic: alert, oriented x3 Psychiatric: mood/affect normal Skin: no rash, warm/dry Medical Decision Making EKG Diagnostic Results EKG Time: 17:14 EP Interpretation: SR, rate 83, QTc 502, no acute ST elevations, LVH Rate: normal Rhythm: NSR ST Segments: no acute changes Rhythm Strip Diag. Results Rhythm Strip Time: 17:50 EP Interpretation: yes Rate: 94 Rhythm: NSR, no PVC's, no ectopy Chest X-Ray Diagnostic Results Chest X-Ray Diagnostic Results : Chest X-Ray Ordered: Yes # of Views/Limited/Complete: 1 View Indication: Shortness of Breath Interpretation: other - Left lower lobe opacity Impression: Other - Pneumonia Last Vital Signs Date Time Temp Pulse Resp B/P (MAP) Pulse Ox O2 Delivery O2 Flow Rate FiO2 02/03/19 16:46 98.2 91 18 135/83 (100) 98 Room Air Disposition: HOME, SELF-CARE Condition: Stable Scripts Prednisone* (PREDNISONE*) 20 Mg Tablet 40 MG ORAL DAILY for 4 Days, #8 TAB Prov: Gabriele Fleming MD 02/03/19 Benzonatate (Tessalon Perle) 100 Mg Capsule 100 MG ORAL THREE TIMES A DAY PRN for For Cough, #15 PERLE Prov: Gabriele Fleming MD 02/03/19 Azithromycin* (ZITHROMAX*) 250 Mg Tablet 250 MG ORAL DAILY for zpak, #6 TAB 0 Refills Take two tables once daily for 1 day, then one tablet once daily for 4 days. Prov: Gabriele Fleming MD 02/03/19 Referrals: [facility] Patient Instructions: Community-Acquired Pneumonia, Adult Additional Instructions: The patient was provided with discharge instructions, notified to follow-up with a primary care doctor and or specialist in the next 24-48 hours, and to return to the ED if they have worsening of their symptoms. Please note that this report is being documented using [employer] technology. This can lead to erroneous entry secondary to incorrect interpretation by the dictating instrument. Gabriele Fleming MD Feb 03, 2019 17:02
--- NOTE | 2019-02-03 17:09 | NUR ---
ED Nurse Note: XRAY AT BEDSIDE.
[2019-02-03] MEDS ORDERED: Dexamethasone 4mg/ml vial IVP ONE (17:15)
[2019-02-03] MEDS ORDERED: Ipratropium 0.02% Inh Soln 2.5ml UD HHN ONE (17:15)
[2019-02-03] MEDS ORDERED: Albuterol ud Inhalation HHN ONE (17:15)
[2019-02-03] MEDS ORDERED: DiphenhydrAMINE 50mg/ml Inj ONE (17:17)
[2019-02-03 17:27] LABS: BASOPHILS % (AUTO) 1.9 % (0.0-2.0); EOSINOPHILS % (AUTO) 2.5 % (0.0-3.0); HEMATOCRIT 38.8 % (37.0-47.0); LYMPHOCYTES % (AUTO) 34.8 % (20.0-45.0); MEAN CORPUSCULAR VOLUME 83 FL (80-99); MONOCYTES % (AUTO) 7.9 % (1.0-10.0); PLATELET COUNT 341 K/UL (150-450); RED BLOOD COUNT 4.67 M/UL (4.20-5.40); RED CELL DISTRIBUTION WIDTH 12.6 % (11.6-14.8); WHITE BLOOD COUNT 8.5 K/UL (4.8-10.8)
[2019-02-03] MEDS ORDERED: DiphenhydrAMINE 50mg/ml Inj IVP ONE (17:30)
[2019-02-03 17:36] LABS: ANION GAP 5 mmol/L (5-15); BLOOD UREA NITROGEN 17 mg/dL (7-18); CALCIUM 9.7 MG/DL (8.5-10.1); CARBON DIOXIDE 29 MMOL/L (21-32); CHLORIDE 107 MMOL/L (98-107); POTASSIUM 3.4 MMOL/L (3.5-5.1); SODIUM 141 MMOL/L (136-145)
[2019-02-03 17:40] LABS: ALANINE AMINOTRANSFERASE 36 U/L (12-78); ALBUMIN 3.6 G/DL (3.4-5.0); ALBUMIN/GLOBULIN RATIO 0.8 (1.0-2.7); ALKALINE PHOSPHATASE 62 U/L (46-116); ASPARTATE AMINO TRANSFERASE 20 U/L (15-37); BILIRUBIN,TOTAL 0.4 MG/DL (0.2-1.0)
[2019-02-03] MEDS ORDERED: TESSALON PERLE100 M2 ORAL (17:52)
[2019-02-03] MEDS ORDERED: PREDNISONE20 MG ORAL (17:52)
[2019-02-03] MEDS ORDERED: ZITHROMAX250 MG ORAL (17:52)
--- NOTE | 2019-02-03 18:12 | NUR ---
ED Nurse Note: PT LAYING PEACEFULLY IN BED IN NAD. AOX4. PRESCRIPTIONS AND DISCHARGE PAPERWORK EXPLAINED TO PT. PT VERBALIZES UNDERSTANDING AND ALL QUESTIONS ANSWERED. PRESCRIPTIONS AND DISCHARGE PAPERWORK GIVEN TO PT, IV AND ID WRISTBAND REMOVED. PT WALKED OUT OF ER WITH STEADY GAIT AND ALL BELONGINGS.
[2019-02-03 18:13] VITALS: BP 114/82
--- NOTE | 2019-02-04 11:40 | Diagnostic Imaging Report ---
Indication: Cough Technique: One view of the chest Comparison: none Findings: Lungs and pleural spaces are clear. Heart size is normal Impression: No acute process
--- NOTE | 2019-02-06 13:07 | Cardiology Report ---
APPROVED REPORT EKG Measurement Heart [id number] Normal sinus rhythm Right atrial enlargement Left ventricular hypertrophy with repolarization abnormality Prolonged QT Abnormal ECG
== END 2019-02-03 18:15 | disposition home or self-care (01) ==
LOC: EMR 16:53
DX: J18.9 Pneumonia, unspecified organism (principal); I10 Essential (primary) hypertension; Z91.041 Radiographic dye allergy status; E78.5 Hyperlipidemia, unspecified
CPT/HCPCS: 36415; 71045; 80053; 85025; 93005; 94640; 94664; 96374; 96375; 99284; J1100; J1200